=== PATIENT | female | born 1960 | race Caucasian/White ===

== ENCOUNTER 2018-08-23 08:53 | Day surgery (SDC) | payer OTHER ==
[~2018-08-23] VITALS: Ht 149.9 cm; Wt 47.2 kg
[2018-08-23 09:29] VITALS: Ht 149.9 cm; Wt 47.2 kg
[2018-08-23] MEDS ORDERED: LEVOTHYROXINE (09:49)
[2018-08-23 10:08] VITALS: BP 137/67; PULSE 73; RESP 17
[2018-08-23] MEDS ORDERED: FENTAnyl 50 MCG/ML VIAL ONE (10:46)
[2018-08-23] MEDS ORDERED: MIDAZOLAM 1 MG/ML 2 ML INJ ONE ×2 (10:46)
== END 2018-08-23 11:53 | disposition home or self-care (01) ==
LOC: GIL 08:53
PROVIDERS: ATTEND Internal Medicine Gastroenterology
DX: Z12.11 Encounter for screening for malignant neoplasm of colon (principal); K64.4 Residual hemorrhoidal skin tags; K57.30 Diverticulosis of large intestine without perforation or abscess without bleeding
CPT/HCPCS: 45378; J2250; J3010